=== PATIENT | male | born 1975 | race Caucasian/White ===

== ENCOUNTER → 2019-04-04 | Outpatient (REF) | payer OTHER ==
[~2019-04-04] MED LIST: BACL10TA2 PO; DEPA250T32 PO; FLUO20CA8 PO; METO25TA2 PO; OXYC5TAB2 PO; PRAV40TA2 PO; VITA500019 PO; VITA500T53 PO
== END ==
LOC: M LAB LCGH 11:39
PROVIDERS: ATTEND Surgery
DX: L57.0 Actinic keratosis (principal); C44.390 Other specified malignant neoplasm of skin of unspecified parts of face

== ENCOUNTER → 2022-06-22 | Outpatient (REF) | payer OTHER, MEDICARE | LOC: M SFHCDERM 17:18 | PROVIDERS: ATTEND Physician Assistant | DX: C44.612 Basal cell carcinoma of skin of right upper limb, including shoulder (principal); L57.0 Actinic keratosis; L57.8 Other skin changes due to chronic exposure to nonionizing radiation ==